=== PATIENT | male | born 1945 | race Caucasian/White ===

== ENCOUNTER 2018-07-20 22:54 | Emergency (ER) | payer MEDICARE, OTHER ==
[2018-07-20 23:18] LABS: ADD MAN DIFF? NO
[2018-07-20 23:21] LABS: WHITE BLOOD COUNT 9.7 10^3/ul (4.8-10.8)
[2018-07-20 23:21] LABS: BASOPHIL # 0.1 10^3/ul (0.0-0.1); BASOPHILS % 0.7 % (0.0-2.0); EOSINOPHILS # 0.1 10^3/ul (0.0-0.5); EOSINOPHILS % 1.3 % (0.0-7.0); HEMATOCRIT 41.4 % (42.0-52.0); HEMOGLOBIN 13.4 g/dl (14.0-18.0); LYMPHOCYTES # 3.1 10^3/ul (0.8-2.9); LYMPHOCYTES % 32.2 % (15.0-51.0); MEAN CORPUSCULAR HEMOGLOBIN 29.3 pg (29.0-33.0); MEAN CORPUSCULAR HGB CONC 32.4 g/dl (32.0-37.0); MEAN CORPUSCULAR VOLUME 90.6 fl (82.0-101.0); MEAN PLATELET VOLUME 10.5 fl (7.4-10.4); MONOCYTES % 10.4 % (0.0-11.0); NEUTROPHIL # 5.1 10^3/ul (1.6-7.5); NEUTROPHILS % 52.9 % (39.0-77.0); PLATELET COUNT 208 10^3/UL (140-415); RED BLOOD COUNT 4.57 10^6/ul (4.70-6.10); RED CELL DISTRIBUTION WIDTH 16.9 % (11.5-14.5)
[2018-07-20] MEDS: ALBUTEROL 0.083% (NEB) 2.5 MG/3 ML AMP INH (23:26)
[2018-07-20] MEDS: IPRATROPIUM (NEB) 0.5 MG/2.5 ML AMP INH (23:26)
[2018-07-20 23:38] LABS: ANION GAP 9 (5-13); BLOOD UREA NITROGEN 24 mg/dl (7-20); CALCIUM 9.2 mg/dl (8.4-10.2); CARBON DIOXIDE 25 mmol/L (21-31); CHLORIDE 104 mmol/L (97-110); GLUCOSE 106 mg/dl (70-220); POTASSIUM 4.4 mmol/L (3.5-5.1); SODIUM 138 mmol/L (135-144)
[2018-07-20 23:50] LABS: TROPONIN-I < 0.012 ng/ml (0.000-0.120)
[2018-07-20] MEDS: DEXAMETHASONE 10 MG/ML 1 ML INJ IV (23:56)
[2018-07-20] MEDS: LEVOFLOXACIN 750MG/D5W (PMX) 150 ML IVPB (23:57)
[2018-07-20] MEDS: SOD CHLORIDE 0.9% 1,000 ML IV (23:57)
[2018-07-21] MEDS: KETOROLAC 30 MG INJ IV (00:41)
== END 2018-07-21 02:19 | disposition home or self-care (01) ==
LOC: E/R 07-21 02:19
DX: M54.6 Pain in thoracic spine (principal); R53.1 Weakness; J45.909 Unspecified asthma, uncomplicated; I10 Essential (primary) hypertension; F17.210 Nicotine dependence, cigarettes, uncomplicated; R06.02 Shortness of breath; Z79.82 Long term (current) use of aspirin
CPT/HCPCS: 36415; 71045; 80048; 83605; 84484; 85025; 94664; 96374; 96375; 99285-25

== ENCOUNTER 2018-10-29 07:48 | Emergency (ER) | payer MEDICARE, OTHER | END 2018-10-29 09:45 | disposition home or self-care (01) | LOC: FTE 07:48 | DX: S60.222A Contusion of left hand, initial encounter (principal); J45.909 Unspecified asthma, uncomplicated; I10 Essential (primary) hypertension; W01.198A Fall on same level from slipping, tripping and stumbling with subsequent striking against other object, initial encounter; Y92.9 Unspecified place or not applicable; Z79.82 Long term (current) use of aspirin; Z87.891 Personal history of nicotine dependence | CPT/HCPCS: 29125; 73110-LT; 73130-LT; 99283-25 ==